=== PATIENT | male | born 1985 ===

== ENCOUNTER 2023-11-24 16:58 | Outpatient (REF) | payer MEDICAID, SELFPAY ==
--- OUTSIDE RECORDS SUMMARY | 2023-11-24 17:01 | XMS_ITS | CCD ---
Author Name Unknown Address [address] [place] [address] [phone] Organization Unknown Address [address] [place] [address] [phone] Care Team Providers Care Venue Attendant Name Role Phone DAMI SAAVEDRA Attending Physician [phone] Vital Signs Unknown or Not Available. Allergies Allergy Code Allergy Type Reaction Status NICKEL [id number] Drug allergy Active Procedures Unknown or Not Available. History of Immunizations Unknown or Not Available. Problems Unknown or Not Available. Results Unknown or Not Available. Active Medications Medication Code Dose Units Frequency Route Modificatio n Start Date/Time Protonix 40 MG Oral Tablet, Delayed Release 881715 1 TABLET DAILY ORAL 11/03 22:29 Prescription Detail TAKE 1 TABLET ORAL DAILY HYDROcodone bitartrate-acetam inophen 5MG-325MG Oral Tablet 210807 1 TABLET EVERY 6 HOURS ORAL 06/2022 14:51 Prescription Detail TAKE 1 TABLET ORAL EVERY 6 HOURS as need ed for pain. NO DRIVING if taking these meds. predniSONE 20MG Oral Tablet [id number] 2 TABLET DAILY ORAL 11/10/19 14:49 Prescription Detail TAKE 2 TABLET ORAL DAILY Medications Administered During Visit Unknown or Not Available. Encounters Encounter Diagnosis Diagnosis Code Start Date Disorder of bone 48843180 01/11/2022 Social History Smoking Status Code Start Date End Date Current every day smoker [id number] Patient Decision Aids Unknown or Not Available. Discharge Instructions You were admitted to [facility] on 01/11/2022 11:36 with a principal diagnosis of Other specified disorders of bone, other site You were discharged from [facility] on 01/11/2022 11:36 Should you have any questions prior to discharge, please contact a member of your healthcare team. If you have left the hospital and have any questions, please contact your primary care physician. Chief Complaint and Reason For Visit Unknown or Not Available. Function Status Unknown or Not Available. Plan of Care Unknown or Not Available. Referral/Transition of Care Unknown or Not Available.
--- OUTSIDE RECORDS SUMMARY | 2023-11-24 17:01 | XMS_ITS | CCD ---
Author Name Unknown Address [address] [place] [address] [phone] Organization Unknown Address [address] [place] [address] [phone] Care Team Providers Care Seam Steamer Name Role Phone DINA MEJIAS Attending Physician [phone] DINA MEJIAS Er Physician 2 [phone] NICKI Hernandez Registered Nurse [phone] Vital Signs Vital Sign Value Unit Date/Time Recent/Initial ? BMI (Body Mass Index) 18.26 kg/m^2 11/10/2021 14: 09 Initial VS Weight Measured 150 lbs 11/10/2021 14:09 Ini tial VS Height 76 in 11/10/2021 14:09 Initial VS BSA (Body Surface Area) 1.91 m^2 11/10/2021 1 4:09 Initial VS BP Systolic 135 mmHg 11/10/2021 14:09 Initial VS BP Diastolic 94 mmHg 11/10/2021 14:09 Initia l VS Respiratory Rate 16 bpm 11/10/2021 14:09 In itial VS Heart Rate 78 bpm 11/10/2021 14:09 Initial VS O2 % BldC Oximetry 100 % 11/10/2021 14:09 Initial VS Body Temperature 36.4 degrees 11/10/2021 14:09 In itial VS Allergies Allergy Code Allergy Type Reaction Status NICKEL [id number] Drug allergy Active Procedures Unknown or Not Available. History of Immunizations Unknown or Not Available. Problems Unknown or Not Available. Results Unknown or Not Available. Active Medications Unknown or Not Available. Medications Administered During Visit Unknown or Not Available. 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 Discharge Instructions You were admitted to [facility] on 11/10/2021 13:58 with a principal diagnosis of Injury of peripheral nerve(s) at abdomen, lower back and pelvis level, initial encounter You were discharged from [facility] on 11/10/2021 15:00 Should you have any questions prior to discharge, please contact a member of your healthcare team. If you have left the hospital and have any questions, please contact your primary care physician. Chief Complaint and Reason For Visit Chief Complaint Date of Onset LEFT HIP PAIN Function Status Unknown or Not Available. Plan of Care Unknown or Not Available. Referral/Transition of Care Unknown or Not Available.
[2023-11-24 22:36] LABS: ALT 49 U/L (16-63); AST 27 U/L (15-37); Alkaline Phosphatase 90 U/L (46-116); Anion Gap 7.4 mmol/L (3-11); BUN 12 mg/dL (7-18); Bilirubin, Total 0.5 mg/dL (0.2-1.0); CO2 28.6 mmol/L (21.0-32.0); CREATININE 1.3 mg/dL (0.70-1.30); Calcium 9.4 mg/dL (8.5-10.1); Calculated LDL 71 mg/dL (<100); Chloride 105 mmol/L (98-107); Cholesterol 177 mg/dL (<200); Estimated GFR 72.56 (mL/min/1.73m2); Glucose 102 mg/dL (74-106); HDL Cholesterol 41 mg/dL (40-60); Sodium 141 mmol/L (136-145); Total Protein 7.6 g/dL (6.4-8.2); Triglyceride 328 mg/dL (<150)
== END 2023-11-24 16:59 | disposition home or self-care (01) ==
LOC: NCHCN 16:58
PROVIDERS: Visit Provider Nurse Practitioner Family
DX: R94.5 Abnormal results of liver function studies (principal); E78.1 Pure hyperglyceridemia
CPT/HCPCS: 80053; 80061